=== PATIENT | male | born 1965 | race Caucasian/White ===

== ENCOUNTER 2021-08-28 05:37 | Emergency (ER) | payer OTHER ==
[2021-08-28 05:51] VITALS: BP 131/87; PULSE 74; TEMP 97.7; BMI 47.2
[2021-08-28] MEDS ORDERED: OXYMETAZOLINE 0.05% NASAL SOLUTION 15 ML BOTTLE NS ONE (06:08)
[2021-08-28] MEDS ORDERED: PSEUDOEPHEDRINE HCL 30 MG TABLET PO ONE (06:17)
[2021-08-28] MEDS ORDERED: PSEUDOEPHEDRINE HCL 60 MG TABLET PO ONE (06:24)
[2021-08-28] MEDS ORDERED: PSEUDOEPHEDRINE HCL 60 MG TABLET ONE (06:24)
[2021-08-29 18:07] LABS: SARS-CoV-2 NAA Not Detected (Not Detected)
== END 2021-08-28 06:51 | disposition home or self-care (01) ==
LOC: JER 05:37
DX: R06.02 Shortness of breath (principal)
CPT/HCPCS: 87804; 99284-25; C9803-CS; U0003; U0005